=== PATIENT | female | born 1990 | race Caucasian/White ===

== ENCOUNTER 2021-07-22 11:15 | Inpatient (IN) | payer OTHER, SELFPAY ==
[~2021-07-22] VITALS: Ht 157.5 cm; Wt 88.0 kg
[2021-07-22] MEDS ORDERED: NALBUPHINE HCL 10 MG/ML AMP IVP PRN (11:45)
[2021-07-22] MEDS ORDERED: TERBUTALINE SULFATE 1 MG/ML VIAL SUBCUT ONE (11:45)
[2021-07-22 12:00] LABS: BASOPHILS # (AUTO) 0.1 K/uL (0.0-0.2); BASOPHILS % (AUTO) 0.7 % (0.0-2.0); EOSINOPHILS % (AUTO) 0.3 % (0.0-4.0); HEMATOCRIT 41.3 % (36-48); HEMOGLOBIN 14.1 g/dL (12.0-16.0); LYMPHOCYTES # (AUTO) 1.4 K/uL (1.0-5.5); LYMPHOCYTES % (AUTO) 13.7 % (20.5-51.5); MEAN CORPUSCULAR HEMOGLOBIN 32 pg (27-31); MEAN CORPUSCULAR HGB CONC 34 % (32-36); MEAN CORPUSCULAR VOLUME 94 fL (79.0-98.0); MONOCYTES # (AUTO) 0.6 K/uL (0.0-1.0); NEUTROPHILS # (AUTO) 7.9 K/uL (1.8-7.7); NEUTROPHILS % (AUTO) 79.3 % (40.0-70.0); PLATELET COUNT (AUTO) 192 K/uL (130-430); RED BLOOD CELL COUNT(AUTO) 4.39 MIL/uL (4.2-6.2)
[2021-07-22] MEDS: MISOPROSTOL 100 MCG TABLET (CYTOTEC) PO SCH ×3 (12:44→20:52)
[2021-07-22 13:27] VITALS: BP_SYST 120
[2021-07-23] MEDS: LR 1,000 ML IV SCH ×4 (00:13→17:09)
[2021-07-23] MEDS: MISOPROSTOL 100 MCG TABLET (CYTOTEC) PO SCH (07:31)
[2021-07-23] MEDS: OXYTOCIN/0.9 % SODIUM CHLORIDE 1,000 ML IV SCH (09:44)
[2021-07-23] MEDS ORDERED: NALBUPHINE HCL 10 MG/ML AMP IVP PRN (14:45)
[2021-07-24] MEDS ORDERED: fentaNYL CITRATE/PF 100 MCG/2 ML AMP ONE (02:19)
[2021-07-24] MEDS ORDERED: ROPIVACAINE HCL/PF 0.2% 200 ML ONE (02:20)
[2021-07-24] MEDS ORDERED: ONDANSETRON HCL 4 MG/2 ML VIAL IVP PRN ×2 (03:30)
[2021-07-24] MEDS ORDERED: NALOXONE HCL 0.4 MG/ML AMP (NARCAN) IVP PRN (03:30)
[2021-07-24] MEDS ORDERED: DIPHENHYDRAMINE INJ 50 MG/ML VIAL IVP PRN (03:30)
[2021-07-24] MEDS ORDERED: FENT2mCg/mL-ROPIVA0.2%/NS EPID 200 ML EP SCH (03:30)
[2021-07-24] MEDS ORDERED: LR 1,000 ML IV SCH (05:00)
[2021-07-24] MEDS ORDERED: CEFAZOLIN 2 GM IVPB PREMIX 50 ML IV ONE (05:00)
[2021-07-24] MEDS ORDERED: NS IRRIG SOLN 1000 ML IR ONE (06:03)
[2021-07-24] MEDS ORDERED: OXYTOCIN 10 UNIT/ML VIAL IV ONE (06:03)
[2021-07-24] MEDS ORDERED: METOCLOPRAMIDE HCL 10 MG/2 ML VIAL IVP ONE (06:03)
[2021-07-24] MEDS ORDERED: DEXAMETHASONE SOD PHOSPHATE 4 MG/ML VIAL IVP ONE (06:03)
[2021-07-24] MEDS ORDERED: PHENYLEPHRINE HCL 10 MG/ML VIAL (NEOSYNEPHRINE) IV ONE (06:03)
[2021-07-24] MEDS ORDERED: ONDANSETRON HCL 4 MG/2 ML VIAL IVP ONE (06:03)
[2021-07-24] MEDS ORDERED: LR 1,000 ML IV.SOLN IV ONE (06:03)
[2021-07-24] MEDS ORDERED: MORPHINE SULFATE 10MG/10ML PF AMP EP ONE (06:03)
[2021-07-24 06:26] LABS: BILIRUBIN,URINE NEGATIVE (NEGATIVE); CLARITY/URINE CLEAR (CLEAR); COLOR,URINE YELLOW (YELLOW); GLUCOSE,URINE NEGATIVE (NEGATIVE); KETONES,URINE 1+ (NEGATIVE); LEUKOCYTE ESTERASE ,URINE NEGATIVE (NEGATIVE); NITRITE, URINE NEGATIVE (NEGATIVE); PH,URINE 6.5 (5.0-8.0); PROTEIN URINE NEGATIVE (NEGATIVE); UROBILINOGEN,URINE 0.2 (0.2-1.0)
[2021-07-24 07:00] VITALS: BP_SYST 96
[2021-07-24] MEDS ORDERED: OXYCODONE/ACETAMINOPHEN 5-325 TABLET PO PRN (07:00)
[2021-07-24] MEDS ORDERED: HYDROcodone/ACETAMIN 5-325 MG TAB (NORCO/ VICODIN) PO PRN (07:00)
[2021-07-24 07:03] LABS: BLOOD, URINE TRACE (NEGATIVE)
[2021-07-24 10:06] LABS: BACTERIA,URINE FEW /HPF (None Seen); WBC,URINE 0-3 /HPF (0-3)
[2021-07-24] MEDS: OXYTOCIN/0.9 % SODIUM CHLORIDE 1,000 ML IV SCH (14:33)
[2021-07-24] MEDS ORDERED: IBUPROFEN 600 MG TABLET ONE (15:05)
[2021-07-24] MEDS ORDERED: LANOLIN 7 GM OINT. TP PRN (19:30)
[2021-07-24] MEDS ORDERED: OXYTOCIN/0.9 % SODIUM CHLORIDE 1,000 ML IV ONE (19:30)
[2021-07-24 20:06] LABS: FTA-Ab (T PALLIDUM) Non Reactive (Non Reactive)
[2021-07-24] MEDS: DOCUSATE SODIUM 100 MG CAPSULE PO SCH (20:28)
[2021-07-24] MEDS: IBUPROFEN 600 MG TABLET PO PRN (21:07)
[2021-07-25] MEDS: LR 1,000 ML IV SCH (00:36)
[2021-07-25] MEDS: IBUPROFEN 600 MG TABLET PO PRN ×4 (03:20→23:51)
[2021-07-25 08:48] LABS: BASOPHILS % (AUTO) 0.2 % (0.0-2.0); EOSINOPHILS % (AUTO) 0.3 % (0.0-4.0); LYMPHOCYTES # (AUTO) 1.8 K/uL (1.0-5.5); LYMPHOCYTES % (AUTO) 16.8 % (20.5-51.5); MEAN CORPUSCULAR HEMOGLOBIN 32 pg (27-31); MEAN CORPUSCULAR HGB CONC 34 % (32-36); MEAN CORPUSCULAR VOLUME 95 fL (79.0-98.0); MONOCYTES # (AUTO) 0.8 K/uL (0.0-1.0); NEUTROPHILS # (AUTO) 7.9 K/uL (1.8-7.7); NEUTROPHILS % (AUTO) 74.7 % (40.0-70.0); PLATELET COUNT (AUTO) 177 K/uL (130-430); RED BLOOD CELL COUNT(AUTO) 3.39 MIL/uL (4.2-6.2); RED CELL DISTRIBUTION WIDTH 13.3 % (9.0-15.0); WHITE BLOOD COUNT (AUTO) 10.6 K/uL (4.8-10.8)
[2021-07-25] MEDS: DOCUSATE SODIUM 100 MG CAPSULE PO SCH ×2 (08:54→20:38)
[2021-07-25] MEDS: SIMETHICONE 80 MG TAB.CHEW PO PRN ×3 (08:55→18:46)
[2021-07-25] MEDS: OXYCODONE/ACETAMINOPHEN 5-325 TABLET PO PRN ×2 (08:55→14:48)
[2021-07-25] MEDS: SENNOSIDES/DOCUSATE SODIUM 1 TAB TABLET(SENOKOT-S) PO SCH (20:37)
[2021-07-26] MEDS: IBUPROFEN 600 MG TABLET PO PRN ×4 (05:54→23:49)
[2021-07-26] MEDS: OXYCODONE/ACETAMINOPHEN 5-325 TABLET PO PRN (08:02)
[2021-07-26] MEDS: SIMETHICONE 80 MG TAB.CHEW PO PRN ×3 (09:01→18:05)
[2021-07-26] MEDS: DOCUSATE SODIUM 100 MG CAPSULE PO SCH ×2 (09:01→21:01)
[2021-07-26] MEDS: SENNOSIDES/DOCUSATE SODIUM 1 TAB TABLET(SENOKOT-S) PO SCH (21:01)
[2021-07-27] MEDS: OXYCODONE/ACETAMINOPHEN 5-325 TABLET PO PRN ×3 (00:53→15:00)
[2021-07-27] MEDS: IBUPROFEN 600 MG TABLET PO PRN ×2 (06:18→12:16)
[2021-07-27] MEDS: DOCUSATE SODIUM 100 MG CAPSULE PO SCH (08:54)
== END 2021-07-27 15:30 | disposition home or self-care (01) | DRG 788 ==
LOC: SPU 11:15
PROVIDERS: ADMIT Obstetrics & Gynecology; ATTEND Obstetrics & Gynecology
PROC: 3E0P7VZ Introduction of Hormone into Female Reproductive, Via Natural or Artificial Opening (ICD-10-PCS; 2021-07-24)
PROC: 10D00Z1 Extraction of Products of Conception, Low, Open Approach (ICD-10-PCS; principal; 2021-07-24 06:03)
DX: O61.9 Failed induction of labor, unspecified (principal); O62.2 Other uterine inertia; O36.63X0 Maternal care for excessive fetal growth, third trimester, not applicable or unspecified; Z37.0 Single live birth; Z20.822 Contact with and (suspected) exposure to COVID-19; Z3A.39 39 weeks gestation of pregnancy
CPT/HCPCS: 36415; 81000; 81002; 85025; 86592; 86780; 86886; 86900; 86901; 94760; J0690; J1100; J2274; J2300; J2370; J2405; J2590; J2765; J3010; J7120